=== PATIENT | female | born 1985 | race Hispanic/Latino ===

== ENCOUNTER 2019-01-23 18:25 | Emergency (ER) | payer OTHER ==
[~2019-01-23] VITALS: Ht 157.5 cm; Wt 113.4 kg
--- NOTE | 2019-01-23 19:49 | Diagnostic Imaging Report ---
Frontal and lateral views of the chest. HISTORY: Chest pain, shortness of breath COMPARISON: None available. DISCUSSION: Soft tissue attenuation partially limits sensitivity of the exam. Overlying monitoring leads. Lungs: Low lung volumes result in bibasilar vascular crowding, accentuation of the pulmonary interstitial markings, central pulmonary vasculature, and the cardiac silhouette. Allowing for these limitations, the findings are as follows: No evidence of a consolidative pneumonia or pulmonary alveolar edema. Pleura: No pleural effusion or pneumothorax. Heart and mediastinum: The cardiomediastinal silhouette appear(s) unremarkable. Bones and soft tissues: Mild right convex curvature. IMPRESSION: 1. Low lung volumes. 2. Otherwise, no acute radiographic abnormality. Signed by: Dr. Robin Luevano D.O., M.M.M. on 01/23/2019 7:46 PM
[2019-01-23 20:42] VITALS: BP 108/62
== END 2019-01-23 20:48 | disposition home or self-care (01) ==
LOC: FSED 18:25
DX: R07.89 Other chest pain (principal)
CPT/HCPCS: 71046; 80053; 81003; 81025; 82553; 84484; 85025; 85379; 93005; 99284

== ENCOUNTER 2021-05-31 02:08 | Emergency (ER) | payer SELFPAY ==
[~2021-05-31] VITALS: Ht 157.5 cm; Wt 118.8 kg
[2021-05-31] MEDS ORDERED: ONDANSETRON HCL INJ 2MG/ML 2ML 2 MG/ML VIAL IV STA (02:27)
[2021-05-31] MEDS ORDERED: SODIUM CHLORIDE 0.9% 1000ML 1,000 ML IV ONE ×2 (02:30→04:00)
[2021-05-31] MEDS ORDERED: KETOROLAC TROMETHAMINE 30 MG/ML VIAL IV STA (02:40)
[2021-05-31] MEDS ORDERED: Morphine 4mg Syringe 4 MG/ML INJ IV PRN (02:45)
[2021-05-31] MEDS ORDERED: ONDANSETRON HCL INJ 2MG/ML 2ML 2 MG/ML VIAL ONE (02:50)
[2021-05-31] MEDS ORDERED: KETOROLAC TROMETHAMINE 30 MG/ML VIAL ONE (02:50)
[2021-05-31] MEDS ORDERED: SODIUM CHLORIDE 0.9% 1000ML 1,000 ML ONE ×2 (02:50→03:55)
[2021-05-31] MEDS ORDERED: FAMOTIDINE 20 MG/2 ML VIAL IV STA (02:55)
[2021-05-31] MEDS ORDERED: ONDANSETRON HCL INJ 2MG/ML 2ML 2 MG/ML VIAL IV PRN (03:00)
[2021-05-31] MEDS ORDERED: FAMOTIDINE 20 MG/2 ML VIAL IV ONE (03:16)
[2021-05-31] MEDS ORDERED: ONDANSETRON ODT4 MG PO (04:30)
[2021-05-31 04:44] VITALS: BP 162/88
== END 2021-05-31 04:44 | disposition home or self-care (01) ==
LOC: FSED 02:30
DX: R10.31 Right lower quadrant pain (principal); K76.0 Fatty (change of) liver, not elsewhere classified; R16.0 Hepatomegaly, not elsewhere classified
CPT/HCPCS: 74177; 80048; 80076; 81003; 81025; 84484; 85025; 96374; 96375; 96376; 99284; J1885; J2405; J7030